=== PATIENT | female | born 1965 | race Caucasian/White ===

== ENCOUNTER 2016-07-06 18:11 | Inpatient (IN) | payer SELFPAY ==
[~2016-07-06] VITALS: Ht 175.3 cm; Wt 70.1 kg
[~2016-07-06 18:11] MED LIST: PROC10TA4 PO
[2016-07-06 18:13] VITALS: BP 142/73; PULSE 105; RESP 18; TEMP 98.2; O2SAT 99
--- NOTE | 2016-07-06 19:51 | PD ---
HPI Chief Complaint: Psychiatric Symptoms Time Seen by Provider: 18:49 Travel History International Travel<30 days: No Contact w/Intl Traveler<30days: No Traveled to known affect area: No History of Present Illness HPI 50 -year-old female arrives to the ER complaining of depressed mood for about 3 years or so. It seems to her like it started after her mother's . Today she was found by her son when she was sitting on the couch with a knife on the coffee table. She reports intent to harm her self with it. Her son also notes the patient had been performing research on the Internet about how much medication to take to harm herself. She reports daily exercise has not helped. Assoc symptoms include anorexia. No thoughts of harming others. Denies hx eval by psychiatry or psychotropic interventions. She denies drug abuse. Reports occasional etoh. No prior psych dx. No prior episodes depression. PFSH Past Medical History Diminished Hearing: No ?: Not Past Surgical History Neurologic Surgery: Yes (L4-L5) Other Surgery: Yes (BREAST AUGMENTATION) Social History Alcohol Use: Yes (socially) Tobacco Use: Yes (1/2 ppd) Substance Use: No Allergies-Medications (Allergen,Severity, Reaction): Coded Allergies: No Known Allergies (Unverified , 07/06/16) Reported Meds & Prescriptions Reported Meds & Active Scripts Active Compazine (Prochlorperazine Maleate) 10 Mg Tab 10 Mg PO Q8 Take 1 tablet by mouth every 8 hours as needed for nausea and/or vomiting (generic for compazine) Review of Systems Except as stated in HPI: all other systems reviewed are Neg Physical Exam Narrative GENERAL: 50-year-old female pleasant well-nourished male no acute distress SKIN: Focused skin assessment warm/dry. HEAD: Atraumatic. Normocephalic. EYES: Pupils equal and round. No scleral icterus. No injection or drainage. ENT: No nasal bleeding or discharge. Mucous membranes pink and moist. NECK: Trachea midline. No JVD. CARDIOVASCULAR: Regular rate and rhythm. No murmur appreciated. RESPIRATORY: No accessory muscle use. Clear to auscultation. Breath sounds equal bilaterally. GASTROINTESTINAL: Abdomen soft, non-tender, nondistended. Hepatic and splenic margins not palpable. MUSCULOSKELETAL: No obvious deformities. No clubbing. No cyanosis. No edema. NEUROLOGICAL: Awake and alert. No obvious cranial nerve deficits. Motor grossly within normal limits. Normal speech. PSYCHIATRIC: Cooperative. Reports SI. No HI. No hallucination. Data Data Last Documented VS Vital Signs Date Time Temp Pulse Resp B/P Pulse Ox O2 Delivery O2 Flow Rate FiO2 07/06/16 18:13 98.2 105 18 142/73 99 VS reviewed Orders Complete Blood Count With Diff (07/06/16 18:58) Comprehensive Metabolic Panel (07/06/16 18:58) Psych Screen (07/06/16 18:58) Drug Screen, Random Urine (07/06/16 18:58) Alcohol (Ethanol) (07/06/16 18:58) Salicylates (Aspirin) (07/06/16 18:58) Tylenol (Acetaminophen) (07/06/16 18:58) Labs Laboratory Tests Test 07/06/16 19:15 White Blood Count 16.1 TH/MM3 Red Blood Count 4.35 MIL/MM3 Hemoglobin 15.0 GM/DL Hematocrit 42.6 % Mean Corpuscular Volume 97.8 FL Mean Corpuscular Hemoglobin 34.5 PG Mean Corpuscular Hemoglobin 35.3 % Concent Red Cell Distribution Width 12.2 % Platelet Count 357 TH/MM3 Mean Platelet Volume 8.5 FL Neutrophils (%) (Auto) 79.0 % Lymphocytes (%) (Auto) 14.5 % Monocytes (%) (Auto) 5.4 % Eosinophils (%) (Auto) 0.6 % Basophils (%) (Auto) 0.5 % Neutrophils # (Auto) 12.8 TH/MM3 Lymphocytes # (Auto) 2.3 TH/MM3 Monocytes # (Auto) 0.9 TH/MM3 Eosinophils # (Auto) 0.1 TH/MM3 Basophils # (Auto) 0.1 TH/MM3 CBC Comment DIFF FINAL Differential Comment Sodium Level 135 MEQ/L Potassium Level 3.8 MEQ/L Chloride Level 99 MEQ/L Carbon Dioxide Level 26.7 MEQ/L Anion Gap 9 MEQ/L Blood Urea Nitrogen 5 MG/DL Creatinine 0.85 MG/DL Estimat Glomerular Filtration 70 ML/MIN Rate Random Glucose 95 MG/DL Calcium Level 9.4 MG/DL Total Bilirubin 0.4 MG/DL Aspartate Amino Transf 18 U/L (AST/SGOT) Alanine Aminotransferase 17 U/L (ALT/SGPT) Alkaline Phosphatase 104 U/L Total Protein 8.0 GM/DL Albumin 4.1 GM/DL Salicylates Level 5.3 MG/DL Urine Opiates Screen NEG Acetaminophen Level LESS THAN 2.0 MCG/ML Urine Barbiturates Screen NEG Urine Amphetamines Screen NEG Urine Benzodiazepines Screen NEG Urine Cocaine Screen NEG Urine Cannabinoids Screen NEG Ethyl Alcohol Level LESS THAN 3 MG/DL MDM Medical Decision Making Medical Screen Exam Complete: Yes Emergency Medical Condition: Yes Differential Diagnosis Altered mental status/psychosis due to infection/environmental exposure/ metabolic abnormality, polypharmacy, alcohol abuse/intoxication, illicit or prescribed drug abuse, malingering/secondary gain, non-organic psychiatric disease Narrative Course The history of present illness, ROS, physical exam, review of records and medical workup performed for today's visit have reasonably safely excluded organic etiologies for the patient's presenting complaint. We will continue to monitor the patient carefully in the ER until time of evaluation by the psychiatry service. We are available for any additional medical assistance if needed during the patient's ER course. Disposition per discretion of psychiatry is appreciated. Ray act paperwork filled by the undersigned as the patient has multiple potential mechanisms for self harm. Leukocytosis non-specific in this scenario. CBC & BMP Diagram 07/06/16 19:15 UDrug negative EtOH/APAP/Salicylates: negative LFTs: normal Diagnosis Primary Impression: Suicidal ideation Abran Sanderson MD July 06, 2016 19:51
[2016-07-06 19:53] LABS: AUTOMATED NEUTROPHIL # 12.8 TH/MM3 (1.8-7.7); BASOPHIL # 0.1 TH/MM3 (0-0.2); BASOPHIL % 0.5 % (0.0-2.0); EOSINOPHIL # 0.1 TH/MM3 (0-0.4); EOSINOPHIL % 0.6 % (0.0-4.0); HEMATOCRIT 42.6 % (35.0-46.0); HEMO FLAGS DIFF FINAL; LYMPH % 14.5 % (9.0-44.0); LYMPHOCYTE # 2.3 TH/MM3 (1.0-4.8); MEAN CELL VOLUME 97.8 FL (80.0-100.0); MEAN CORPUSCULAR HEMOGLOBIN 34.5 PG (27.0-34.0); MEAN CORPUSCULAR HGB CONC 35.3 % (32.0-36.0); MONO % 5.4 % (0.0-8.0); PLATELET COUNT 357 TH/MM3 (150-450); RED BLOOD COUNT 4.35 MIL/MM3 (4.00-5.30); RED CELL DISTRIBUTION WIDTH 12.2 % (11.6-17.2); WHITE BLOOD COUNT 16.1 TH/MM3 (4.0-11.0)
[2016-07-06 20:00] LABS: AMPHETAMINE, URINE NEG (NEG); BARBITURATES, URINE NEG (NEG); COCAINE, URINE NEG (NEG)
[2016-07-06 20:19] LABS: ANION GAP 9 MEQ/L (5-15)
[2016-07-06 20:22] LABS: ACETAMINOPHEN LESS THAN 2.0 MCG/ML (10.0-30.0); ALKALINE PHOSPHATASE 104 U/L (45-117); ALT (GPT) 17 U/L (10-53); AST (GOT) 18 U/L (15-37); BICARBONATE 26.7 MEQ/L (21.0-32.0); BLOOD UREA NITROGEN 5 MG/DL (7-18); CHLORIDE 99 MEQ/L (98-107); GLOMERULAR FILTRATION RATE 70 ML/MIN (>89); POTASSIUM 3.8 MEQ/L (3.5-5.1); SODIUM (NA) 135 MEQ/L (136-145); TOTAL BILIRUBIN ADULT 0.4 MG/DL (0.2-1.0)
[2016-07-06] MEDS ORDERED: ACETAMINOPHEN 325 MG TAB PO ONE (20:45)
[2016-07-06 23:08] VITALS: BP 125/58; PULSE 82; RESP 17; O2SAT 95
[2016-07-07 02:00] VITALS: BP 106/63; PULSE 72; RESP 18; O2SAT 96
[2016-07-07 06:00] VITALS: BP 115/59; PULSE 75; RESP 18; O2SAT 98
[2016-07-07 10:30] VITALS: BP 114/60; PULSE 80; RESP 18
--- NOTE | 2016-07-07 13:51 | PD ---
History of Present Illness Chief Complaint: Psychiatric Symptoms Time Seen by Provider: 13:30 Travel History International Travel<30 Days: No Contact w/Intl Traveler<30days: No Known affected area: No Legal Status Legal Status: Ray Act Ray Act Signed By: DR PREET BURGER History of Present Illness: History of Present Illness HPI 50 -year-old female with no previous psychiatric history who arrives to the ER for psychiatric evaluation with complaints of depressed mood for about 3 years or so after the of her mother. She has not been in treatment and has had an increase in symptoms in the past several weeks. Symptoms include depressed mood, episodes of crying, no motivation, no energy, fluctuation in her sleep pattern with either not sleeping or sleeping too much, decreased appetite with weight loss in the past 4 weeks. On her son came home unexpectedly, as he normally does not come home until Sunday and found her sitting on the couch with a knife in front of her. The patient admits that she was contemplating ending her life and planned on doing it on because she did not expect her son home until Sunday. Her son also reports that the patient had been performing research on the Internet about how much medication to take to harm herself. Patient quit her job a month ago as well. EMR is reviewed and she has not had any previous contact with [facility]. Patient admits to abuse of opiate medication fro approximately one year after her mother but that she stopped using any of this one a d half year ago. current toxicology is negative. Patient is alert, oriented and engaging. She is dressed in [facility] with adequate hygiene. Speech is clear and logical. No psychosis and no kindra. Mood is depressed. Endorses suicidal ideation. PFSH Past Medical History Medical History: Denies Significant Hx Diminished Hearing: No ?: Not Menopausal: Yes : 3 Para: 3 Miscarriage: 0 : 0 Ectopic : No Ovarian Cysts: No Dilation and Curettage (D&C): No Tubal Ligation: No Past Surgical History Section: No Hysterectomy: Yes Neurologic Surgery: Yes (L4-L5) Other Surgery: Yes (BREAST AUGMENTATION) Psychiatric History Psychiatric History Hx Psychiatric Treatment: DENIES any previous History of Inpatient Treatment: No Guns or firearms in home: No Social History Never . Lives with her son. Has 2 adult sons and 4 grandchildren. 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 Hx Alcohol Use: No (LAST USED X 1 YEAR AGO) Hx Tobacco Use: Yes Hx Substance Use: Yes Substance Use Type: Alcohol, Nicotine/Cigarettes, Prescription Medications Other Substances Used: STATES CLEAN AND SOBER X 1 YEAR, USED PAIN MEDICATIONS AND ETOH Hx of Substance Use Treatment: No Family Psychiatric History none reported Allergies-Medications (Allergen,Severity, Reaction): Coded Allergies: No Known Allergies (Unverified , 07/06/16) Reported Meds & Prescriptions Reported Meds & Active Scripts Active Review of Systems Except as stated in HPI: all other systems reviewed are Neg Psychiatric: COMPLAINS OF: Depression, Suicidal Ideation Exam Alert: Yes [place]: Person (ox4) Mood: Depressed Affect: Appropriate Speech: Clear, Logical Eye Contact: Normal Memory Intact: Comment (no impairmetn) Delusions: No Suicidal: Ideation (positive) Insight/Judgement fair. not impaired MDM Medical Decision Making Medical Record Reviewed: Yes Assessment/Plan 50 year old female with no previous psychiatric history who presents to ED under a BA . Patient was found with a knife in front of her and has been researching on the Internet how much medication is needed to kill oneself. At si time the patient meets criteria for inpatient psychiatric care for further evaluation, to maintain safety and to initiate treatment . Orders Complete Blood Count With Diff (07/06/16 18:58) Comprehensive Metabolic Panel (07/06/16 18:58) Psych Screen (07/06/16 18:58) Drug Screen, Random Urine (07/06/16 18:58) Alcohol (Ethanol) (07/06/16 18:58) Salicylates (Aspirin) (07/06/16 18:58) Tylenol (Acetaminophen) (07/06/16 18:58) Acetaminophen (Tylenol) (07/06/16 20:45) Diet Regular Basic (07/07/16 Breakfast) Diet Regular Basic (07/07/16 Lunch) Results Vital Signs Date Time Temp Pulse Resp B/P Pulse Ox O2 Delivery O2 Flow Rate FiO2 07/07/16 10:30 80 18 114/60 Room Air 07/07/16 06:00 75 18 115/59 98 Room Air 07/07/16 02:00 72 18 106/63 96 Room Air 07/06/16 23:08 82 17 125/58 95 Room Air 07/06/16 18:13 98.2 105 18 142/73 99 Laboratory Tests Test 07/06/16 19:15 White Blood Count 16.1 Red Blood Count 4.35 Hemoglobin 15.0 Hematocrit 42.6 Mean Corpuscular Volume 97.8 Mean Corpuscular Hemoglobin 34.5 Mean Corpuscular Hemoglobin 35.3 Concent Red Cell Distribution Width 12.2 Platelet Count 357 Mean Platelet Volume 8.5 Neutrophils (%) (Auto) 79.0 Lymphocytes (%) (Auto) 14.5 Monocytes (%) (Auto) 5.4 Eosinophils (%) (Auto) 0.6 Basophils (%) (Auto) 0.5 Neutrophils # (Auto) 12.8 Lymphocytes # (Auto) 2.3 Monocytes # (Auto) 0.9 Eosinophils # (Auto) 0.1 Basophils # (Auto) 0.1 CBC Comment DIFF FINAL Differential Comment Sodium Level 135 Potassium Level 3.8 Chloride Level 99 Carbon Dioxide Level 26.7 Anion Gap 9 Blood Urea Nitrogen 5 Creatinine 0.85 Estimat Glomerular Filtration 70 Rate Random Glucose 95 Calcium Level 9.4 Total Bilirubin 0.4 Aspartate Amino Transf 18 (AST/SGOT) Alanine Aminotransferase 17 (ALT/SGPT) Alkaline Phosphatase 104 Total Protein 8.0 Albumin 4.1 Salicylates Level 5.3 Urine Opiates Screen NEG Acetaminophen Level LESS THAN 2.0 Urine Barbiturates Screen NEG Urine Amphetamines Screen NEG Urine Benzodiazepines Screen NEG Urine Cocaine Screen NEG Urine Cannabinoids Screen NEG Ethyl Alcohol Level LESS THAN 3 Diagnosis Primary Impression: Suicidal ideation Additional Impressions: Adjustment disorder Grief reaction with prolonged bereavement Admitting Information Admitting Physician Requests: Admit Problem Qualifiers Additional Impressions: Adjustment disorder Qualified Code: F43.21 - Adjustment disorder with depressed mood Fiona Lew July 07, 2016 13:51
[2016-07-07] MEDS ORDERED: MAGNESIUM HYDROXIDE SUSP 30 ML CUP PO PRN (14:45)
[2016-07-07] MEDS ORDERED: ALUMINUM/MAGNESIUM/SIMETH 30 ML CUP PO PRN (14:45)
[2016-07-07 15:43] VITALS: BP 122/74; PULSE 80; RESP 16; TEMP 97.2; O2SAT 80
[2016-07-07] MEDS: ACETAMINOPHEN 325 MG TAB PO PRN (18:34)
[2016-07-07 18:48] VITALS: BP 133/66; PULSE 73; RESP 18; TEMP 97.8
[2016-07-08 05:25] VITALS: BP 108/60; PULSE 66; RESP 16; TEMP 97.9; O2SAT 97
[2016-07-08] MEDS ORDERED: INFLUENZA VIRUS VACCINE (QUADRIVALENT) 0.5 ML SYR IM ONE (10:00)
[2016-07-08 10:04] LABS: ANION GAP 7 MEQ/L (5-15); BLOOD UREA NITROGEN 6 MG/DL (7-18); CHLORIDE 102 MEQ/L (98-107); GLOMERULAR FILTRATION RATE 75 ML/MIN (>89); HDL CHOLESTEROL 52.8 MG/DL (40.0-60.0); LDL CHOLESTEROL 135 MG/DL (0-99); POTASSIUM 4.4 MEQ/L (3.5-5.1); SODIUM (NA) 138 MEQ/L (136-145)
[2016-07-08 13:24] LABS: HEMOGLOBIN A1a 1.1 %; HEMOGLOBIN A1b 0.8 %; HEMOGLOBIN Ao 84.4 %; HEMOGLOBIN LA1C 2.1 %; HEMOGLOBIN P3 3.9 %
[2016-07-08] MEDS: ACETAMINOPHEN 325 MG TAB PO PRN (14:03)
--- NOTE | 2016-07-08 15:12 | HHI.HP ---
Provisional Diagnosis Admission Date July 07, 2016 at 14:36 [place] I. 1. Major depressive disorder, single episode, severe without psychotic features [place] II. Deferred [place] V. GAF is 35 presently Certification of Person's Competence To Provide Express and Informed Consent I have personally examined Farrah Gracia , a person being served at [facility] on, July 08, 2016 15:00. Express and informed consent means consent voluntarily given in writing, by a competent person, after sufficient explanation and disclosure of the subject matter involved to enable the person to make a knowing and willful decision without any element of force, fraud, deceit, duress, or other form of constraint or coercion. This person is 18 years of age or older, is not now known to be incompetent to consent to treatment with a guardian advocate, and does not have a health care surrogate or proxy currently making medical treatment decisions. I have found this person to be one of the following: [x] Competent to provide express and informed consent, as defined above, for voluntary admission to this facility and is competent to provide express and informed consent for treatment. He/she has the consistent capacity to make well reasoned, willful, and knowing decisions concerning his or her medical or mental health treatment. The person fully and consistently understands the purpose of the admission for examination/placement and is fully capable of personally exercising all rights assured [place] Incompetent to provide express and informed consent to voluntary admission, and this is incompetent to provide express and informed consent to treatment. The person must be transferred to involuntary status and a petition for a guardian advocate filed with the Circuit Court. [] Refusing to provide express and informed consent to voluntary admission but is competent to provide express and informed consent for treatment. The person must be discharged or transferred to involuntary status. Form shall be completed within 24 hours of a person's arrival at the receiving facility and filed in the clinical record of each person: 1. Admitted on a voluntary basis 2. Permitted to provide express and informed consent to his/her own treatment 3. Allowed to transfer from involuntary to voluntary status 4. Prior to permitting a person to consent to his or her own treatment after having been previously found incompetent to consent to treatment. History of Present Illness Capacity: Has Capacity HPI Ms. Garcia is a 50-year-old female with no reported past psychiatric history who presented to the ED complaining of depression and suicidal ideation. Patient was placed under a Ray act by the ED provider and evaluated by the psychiatric nurse practitioner in the ED. Reviewing the electronic medical record, I see no prior psychiatric contact within our system. Patient seen and examined with nurse. Chart reviewed. Case discussed with nursing staff. Patient reports that she has been feeling depressed since the of her mother over a year ago. She initially tried to self medicate with drugs and alcohol but has been sober for the past year. Her mood has continued to worsen but was manageable up until earlier this week. She says that abruptly around of this week she felt terribly sad and was crying all day. She tried to do things that would normally lift her mood such as going for a run but this had no effect and she found that she was simply crying the whole duration of the run. She says that when she got home she grabbed a knife from the pacu nurse block and sat on her couch with the intent to lethally cut herself but was rescued by her son. She endorses feeling numb and somewhat leaden. She feels backed into a corner like she is "in a box." Appetite is poor. Sleep is fair. Anhedonia present. Denies any urge to hurt herself on the inpatient psychiatric unit. No homicidal ideation. No hypomanic or manic symptoms. No audiovisual hallucinations, and I can elicit no delusional beliefs. The remainder of the psychiatric ROS is negative. Past psychiatric history: Patient denies any history of psychiatric illness. She denies any history of inpatient or outpatient psychiatric treatment. She denies any history of suicide attempts. Family history: Patient denies any family history of serious mental illness, substance use disorder or suicide. 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 Prior to that she was abusing pain pills and alcohol. Social history: Patient denies any history of abuse. 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 She lives with her son and 2 grandchildren. She has an associates degree in receiving teller education. She denies any or legal history. She denies any access to guns or firearms. She is a Confucianism. Review of Systems Except as stated in HPI: all other systems reviewed are Neg Past Psych History Psychological trauma history Denies Violence risk - others (6 mos) Lower imminent risk Violence risk - self (6 mos) Elevated Substance Abuse History Drugs/Alcohol past 12 months See above Past Family Social History Coded Allergies: No Known Allergies (Unverified , 07/06/16) Past Medical History See electronic medical record Discontinued Scripts Prochlorperazine (Compazine)10 Mg Tab10 Mg PO Q8 #15 TAB Take 1 tablet by mouth every 8 hours as needed for nausea and/or vomiting (generic for compazine) Prov:Cristian Nolan MD 03/09/14 Current Medications Medications (Trade) Dose Ordered Sig/Saira Route Start Time Stop Time Status Last Admin (Tylenol) 650 mg Q4H PRN PO 07/07/16 14:45 07/08/16 14:03 (Milk Of Magnesia Liq) 30 ml DAILY PRN PO 07/07/16 14:45 (Mag-Al Plus Susp Liq) 30 ml Q6H PRN PO 07/07/16 14:45 Family History See above Social History See above Patient's Strengths (min. 2) In a monitored setting. Verbally fluent. Physical Exam Physical examination completed by ED provider. On my examination today, the patient appears to be in no acute physical distress. She is well-nourished and well-developed. No motor abnormalities noted. Labs and vital signs reviewed: Vital Signs Vital Signs Date Time Temp Pulse Resp B/P Pulse Ox O2 Delivery O2 Flow Rate FiO2 07/08/16 05:25 97.9 66 16 108/60 97 07/07/16 10:30 Room Air Lab Results Item Value Date Time White Blood Count 16.1 TH/MM3 H 07/06/161914 Hemoglobin 15.0 GM/DL 07/06/161914 Platelet Count 357 TH/MM3 07/06/161914 Sodium Level 138 MEQ/L 07/08/16 0839 Potassium Level 4.4 MEQ/L 07/08/16 0839 Chloride Level 102 MEQ/L 07/08/16 0839 Carbon Dioxide Level 29.0 MEQ/L 07/08/16 08 Blood Urea Nitrogen 6 MG/DL L 07/08/16 0839 Creatinine 0.80 MG/DL 07/08/16 0839 Aspartate Amino Transf (AST/SGOT) 18 U/L 07/06/161914 Alanine Aminotransferase (ALT/SGPT) 17 U/L 07/06/161914 Alkaline Phosphatase 104 U/L 07/06/161914 Urine Opiates Screen NEG 07/06/161914 Urine Barbiturates Screen NEG 07/06/161914 Urine Amphetamines Screen NEG 07/06/161914 Urine Benzodiazepines Screen NEG 07/06/161914 Urine Cocaine Screen NEG 07/06/161914 Urine Cannabinoids Screen NEG 07/06/161914 Ethyl Alcohol Level LESS THAN 3 MG/DL 07/06/161914 Mental Status Examination Patient is casually dressed. She is well groomed. She is awake and alert and oriented 3. No abnormal motor movements noted. Speech is within normal limits for rate, tone and volume. Language and fund of knowledge seemed average. Mood is depressed and affect is restricted. Thought process linear. No loosening of associations. No evident delusions. Denies audiovisual hallucinations. Endorses suicidal ideation without specific plan at this point but denies any urge to hurt herself on the inpatient psychiatric unit. No homicidal ideation. Insight and judgment are fair. Assessment & Plan Problem List: (1) Major depressive disorder ICD Code: F32.9 Assessment & Plan This is a 50-year-old female with psychiatric history as detailed above who presents under Ray act. On my examination today, the patient endorses acute worsening of a sub-chronic to chronic depression within the last week or so with development of suicidal ideation. Patient has no history of psychopharmacologic treatment by her report for her mood. We discussed the risks and benefits as well as the alternatives of an SSRI trial, and the patient is agreeable to trying such an agent. She requires psychiatric admission at this time for safety, observation and stabilization. Admit inpatient. Voluntary status. Check CBC to ensure that leukocytosis is improving. Check TFTs. Start Paxil 20 mg daily. Atarax as needed for anxiety , trazodone as needed for sleep. Vitals every shift. Counselor to see. Disposition planning. Estimated length of stay: 5-7 days. Discharge Planning Pending psychiatric stabilization Request HC Surrog/Guard Advoc?: No Problem Qualifiers (1) Major depressive disorder: Qualified Code: F32.2 - Severe single current episode of major depressive disorder, without psychotic features Avtar Noriega MD July 08, 2016 15:12
[2016-07-08 16:48] LABS: FREE T4 1.08 NG/DL (0.76-1.46)
[2016-07-08 17:56] VITALS: BP 107/55; PULSE 64; RESP 16; TEMP 98.3; O2SAT 99
[2016-07-08 21:24] LABS: AUTOMATED NEUTROPHIL # 4.5 TH/MM3 (1.8-7.7); BASOPHIL # 0.1 TH/MM3 (0-0.2); EOSINOPHIL # 0.2 TH/MM3 (0-0.4); EOSINOPHIL % 2.5 % (0.0-4.0); HEMATOCRIT 41.8 % (35.0-46.0); HEMO FLAGS DIFF FINAL; LYMPH % 36.4 % (9.0-44.0); LYMPHOCYTE # 3.3 TH/MM3 (1.0-4.8); MEAN CELL VOLUME 98.2 FL (80.0-100.0); MEAN CORPUSCULAR HGB CONC 34.7 % (32.0-36.0); MONO % 10.4 % (0.0-8.0); NEUT % 49.7 % (16.0-70.0); PLATELET COUNT 319 TH/MM3 (150-450); RED BLOOD COUNT 4.26 MIL/MM3 (4.00-5.30); RED CELL DISTRIBUTION WIDTH 12.1 % (11.6-17.2)
[2016-07-08] MEDS: traZODone HCL 50 MG TAB PO PRN (22:22)
[2016-07-09 05:44] VITALS: BP 103/55; PULSE 61; RESP 17; TEMP 97.5; O2SAT 96
[2016-07-09] MEDS: PARoxetine HCL 20 MG TAB PO SCH (09:00)
--- NOTE | 2016-07-09 13:46 | HHI.PYPN ---
Subjective Remarks Patient was seen and case discussed with nursing. Patient describes her story of being clean off opiates and alcohol for the past year. She is proud that she did not relapse with this incident. She remains depressed and stressed about various life stressors. Says she has no psychiatric history and is hopeful that her new medication will help her mood. She denies suicidal ideation intent or plan. Sleeping and eating well Objective Alert: Yes [place]: Person (ox4), Place, Date Mood: Depressed Affect: Appropriate Memory Intact: Comment (no impairmetn) Hallucinations: Auditory (denies) Delusions: No Delusion Type: Other (none elicited) Suicidal: Ideation (denies) Homicidal: Ideation (denies) Insight/Judgment Fair Labs Test 07/08/16 21:09 White Blood Count 9.0 TH/MM3 Red Blood Count 4.26 MIL/MM3 Hemoglobin 14.5 GM/DL Hematocrit 41.8 % Mean Corpuscular Volume 98.2 FL Mean Corpuscular Hemoglobin 34.0 PG Mean Corpuscular Hemoglobin 34.7 % Concent Red Cell Distribution Width 12.1 % Platelet Count 319 TH/MM3 Mean Platelet Volume 8.0 FL Neutrophils (%) (Auto) 49.7 % Lymphocytes (%) (Auto) 36.4 % Monocytes (%) (Auto) 10.4 % Eosinophils (%) (Auto) 2.5 % Basophils (%) (Auto) 1.0 % Neutrophils # (Auto) 4.5 TH/MM3 Lymphocytes # (Auto) 3.3 TH/MM3 Monocytes # (Auto) 0.9 TH/MM3 Eosinophils # (Auto) 0.2 TH/MM3 Basophils # (Auto) 0.1 TH/MM3 CBC Comment DIFF FINAL Differential Comment Vitals/IOs Vital Signs Date Time Temp Pulse Resp B/P Pulse Ox O2 Delivery O2 Flow Rate FiO2 07/09/16 05:44 97.5 61 17 103/55 96 07/07/16 10:30 Room Air Assessment & Plan Problem List: (1) Major depressive disorder ICD Code: F32.9 Assessment & Plan Continue current treatment plan Justification for Cont. Inpt. Patient will decompensate in a less restrictive setting Request HC Surrog/Guard Advoc?: No Problem Qualifiers (1) Major depressive disorder: Qualified Code: F32.2 - Severe single current episode of major depressive disorder, without psychotic features Kade Beck DO July 09, 2016 13:46
[2016-07-09] MEDS: ACETAMINOPHEN 325 MG TAB PO PRN (14:06)
[2016-07-09 20:00] VITALS: BP 118/57; PULSE 62; RESP 16; TEMP 97.6; O2SAT 97
[2016-07-09] MEDS: traZODone HCL 50 MG TAB PO PRN (22:07)
[2016-07-10 06:02] VITALS: BP 113/69; PULSE 57; RESP 16; TEMP 96.1; O2SAT 96
[2016-07-10] MEDS: PARoxetine HCL 20 MG TAB PO SCH (08:46)
[2016-07-10] MEDS: hydrOXYzine HCL 50 MG TAB PO PRN ×3 (08:47→21:16)
--- NOTE | 2016-07-10 14:49 | HHI.PYPN ---
Subjective Remarks Admits to a significant history of alcohol and drug abuse. Wants this physician to "fix" her. Started on Paxil. Patient remains focused on her many social problems. Review of Systems ROS Limitations: Uncooperative Objective Alert: Yes [place]: Person (ox4), Place, Date Mood: Depressed Affect: Appropriate Memory Intact: Comment (no impairmetn) Hallucinations: Auditory (denies) Delusions: No Delusion Type: Other (none elicited) Suicidal: Ideation (denies) Homicidal: Ideation (denies) Insight/Judgment Impaired Vitals/IOs Vital Signs Date Time Temp Pulse Resp B/P Pulse Ox O2 Delivery O2 Flow Rate FiO2 07/10/16 06:02 96.1 57 16 113/69 96 07/07/16 10:30 Room Air Assessment & Plan Problem List: (1) Major depressive disorder ICD Code: F32.9 Assessment & Plan Estimated LOS: 3 days patient told this physician and this facility does not provide counseling on an individual basis. She will be involved in individual and group therapies. Her Paxil will be titrated as reasonable. Justification for Cont. Inpt. Likely to decompensate at lower level of care. Request HC Surrog/Guard Advoc?: No Problem Qualifiers (1) Major depressive disorder: Qualified Code: F32.2 - Severe single current episode of major depressive disorder, without psychotic features Frantz Singh MD July 10, 2016 14:48
[2016-07-10 20:00] VITALS: BP 118/65; PULSE 61; RESP 18; TEMP 97; O2SAT 97
[2016-07-10] MEDS: traZODone HCL 50 MG TAB PO PRN (21:16)
[2016-07-11 05:35] VITALS: BP 101/57; PULSE 61; RESP 16; TEMP 98.1; O2SAT 95
[2016-07-11] MEDS: PARoxetine HCL 20 MG TAB PO SCH (08:32)
[2016-07-11] MEDS: hydrOXYzine HCL 50 MG TAB PO PRN ×2 (08:33→14:28)
--- NOTE | 2016-07-11 10:48 | HHI.PYPN ---
Subjective Remarks Continues to appear depressed and anxious. Does not wish to change Paxil or dose of Paxil. Review of Systems Except as stated in HPI: all other systems reviewed are Neg Objective Alert: Yes [place]: Person (ox4), Place, Date Mood: Depressed Affect: Appropriate Memory Intact: Comment (no impairmetn) Hallucinations: Auditory (denies) Delusions: No Delusion Type: Other (none elicited) Suicidal: Ideation (denies) Homicidal: Ideation (denies) Insight/Judgment Impaired Vitals/IOs Vital Signs Date Time Temp Pulse Resp B/P Pulse Ox O2 Delivery O2 Flow Rate FiO2 07/11/16 05:35 98.1 61 16 101/57 95 07/07/16 10:30 Room Air Assessment & Plan Problem List: (1) Major depressive disorder ICD Code: F32.9 Assessment & Plan Estimated LOS: 2 days will continue to give Paxil time to work. Justification for Cont. Inpt. Likely to decompensate at lower level of care. Request HC Surrog/Guard Advoc?: No Problem Qualifiers (1) Major depressive disorder: Qualified Code: F32.2 - Severe single current episode of major depressive disorder, without psychotic features Frantz Singh MD July 11, 2016 10:48
--- NOTE | 2016-07-11 15:01 | HHI.DS ---
Psychiatry Discharge Summary Inpatient Psychiatric care?: Yes Advance Directive: No Reason Not Provided: was provided Mental Health AdvanceDirective: No Health Care Proxy: No Admission Admission Date July 07, 2016 at 14:36 Admission Diagnosis: (1) Adjustment disorder ICD Code: F43.20 Brief History Ms. Garcia is a 50-year-old female with no reported past psychiatric history who presented to the ED complaining of depression and suicidal ideation. Patient was placed under a Ray act by the ED provider and evaluated by the psychiatric nurse practitioner in the ED. Reviewing the electronic medical record, I see no prior psychiatric contact within our system. Patient seen and examined with nurse. Chart reviewed. Case discussed with nursing staff. Patient reports that she has been feeling depressed since the of her mother over a year ago. She initially tried to self medicate with drugs and alcohol but has been sober for the past year. Her mood has continued to worsen but was manageable up until earlier this week. She says that abruptly around of this week she felt terribly sad and was crying all day. She tried to do things that would normally lift her mood such as going for a run but this had no effect and she found that she was simply crying the whole duration of the run. She says that when she got home she grabbed a knife from the ticket broker block and sat on her couch with the intent to lethally cut herself but was rescued by her son. She endorses feeling numb and somewhat leaden. She feels backed into a corner like she is "in a box." Appetite is poor. Sleep is fair. Anhedonia present. Denies any urge to hurt herself on the inpatient psychiatric unit. No homicidal ideation. No hypomanic or manic symptoms. No audiovisual hallucinations, and I can elicit no delusional beliefs. The remainder of the psychiatric ROS is negative. Past psychiatric history: Patient denies any history of psychiatric illness. She denies any history of inpatient or outpatient psychiatric treatment. She denies any history of suicide attempts. Family history: Patient denies any family history of serious mental illness, substance use disorder or suicide. 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 Prior to that she was abusing pain pills and alcohol. Social history: Patient denies any history of abuse. She works as a fine dining server at a restaurant. She lives with her son and 2 grandchildren. She has an associates degree in mold maker apprentice education. She denies any or legal history. She denies any access to guns or firearms. She is a Hinduism. Tobacco Use In Past 30 Days: No Tobacco Past 30 Days Alcohol Use: Never Hospital Course Patient participated in individual and group therapies. At the time of discharge she expressed no suicidal or homicidal ideation, plan or intent. Cognition was intact. No psychosis. Verbally contracted for safety. No procedures were performed. Results Blood Pressure 101 / 57 Vital Signs Date Time Temp Pulse Resp B/P Pulse Ox O2 Delivery O2 Flow Rate FiO2 07/11/16 05:35 98.1 61 16 101/57 95 07/07/16 10:30 Room Air Laboratory Tests Test 07/08/16 21:09 Monocytes (%) (Auto) 10.4 % (0.0-8.0) Laboratory Results Test 07/08/16 08:39 Hemoglobin A1c 5.7 % (4.3-6.0) Triglycerides Level 103 MG/DL (42-150) Cholesterol Level 208 MG/DL (120-200) LDL Cholesterol 135 MG/DL (0-99) HDL Cholesterol 52.8 MG/DL (40.0-60.0) Summary of Procedures None Pending results at discharge: No Medications # of Antipsychotic meds at D/C: 0 Approp Antipsych med options 1 - Minimum of three failed multiple trials of monotherapy. 2 - Documented plan to taper to monotherapy due to previous use of multiple meds OR cross-taper in progress at D/C. 3 - Documentation of augmentation of Clozapine. 4 - Justification other than those listed in allowable values 1-3, document here : Discharge Discharge Date: July 11, 2016 Discharge Diagnosis: (1) Adjustment disorder Diagnosis: Principal ICD Code: F43.20 Mental Status Exam at Disch At the time of discharge the patient had no suicidal or homicidal ideation, plan or intent. Her cognition was completely intact and she verbally contracted for safety. Pt Condition on Discharge: Stable Discharge Disposition: Discharge Home Discharge Instructions Diet Instructions: As Tolerated, No Restrictions Activities you can perform: Regular-No Restrictions Scheduled Appointment: Alex Simeon Appointment Date: July 18, 2016 Appointment Time: 7:30am Discharge Time <= 30 minutes Discharge/Advance Care Plan Health Problems: (1) Major depressive disorder Goals to promote your health * To prevent worsening of your condition and complications * To maintain your health at the optimal level Directions to meet your goals Take your medications as prescribed Follow your dietary instruction Follow activity as directed Keep your appointments as scheduled Take your immunizations and boosters as scheduled If your symptoms worsen call your PCP, if no PCP go to Urgent Care Center or Emergency Room For 25/09 questions related to your inpatient stay or results of tests pending at discharge, please contact Dr. Frantz Singh at Smoking is Dangerous to Your Health. Avoid second hand smoking Problem Qualifiers (1) Adjustment disorder: Qualified Code: F43.21 - Adjustment disorder with depressed mood Frantz Singh MD July 11, 2016 15:01
[2016-07-11] MEDS ORDERED: HYDR50TA94 PO (15:02)
[2016-07-11] MEDS ORDERED: PARO20TA2 PO (15:02)
[2016-07-11 17:56] VITALS: BP 117/67; PULSE 61; RESP 18; TEMP 97.2; O2SAT 96
== END 2016-07-11 18:30 | disposition home or self-care (01) | DRG 885 ==
LOC: NEPD 18:11 → NEDA 07-07 14:36 → H260 07-07 17:44
PROVIDERS: ADMIT Psychiatry & Neurology Psychiatry; ATTEND Psychiatry & Neurology Psychiatry
DX: F32.2 Major depressive disorder, single episode, severe without psychotic features (principal); R45.851 Suicidal ideations; F17.200 Nicotine dependence, unspecified, uncomplicated; F43.21 Adjustment disorder with depressed mood; Z63.4 Disappearance and death of family member
CPT/HCPCS: 80048; 80053; 80061; 80307; 83036; 84439; 84443; 85025; 99284